=== PATIENT | female | born 1930 | race Caucasian/White ===

== ENCOUNTER 2016-04-05 00:15 | Inpatient (IN) | payer OTHER ==
[~2016-04-05] VITALS: Ht 167.6 cm; Wt 68.0 kg
--- NOTE | 2016-04-05 00:16 | NUR ---
PT BIBA TO BED 4 AT THIS TIME.
[2016-04-05] MEDS ORDERED: IPRATROPIUM 0.02% 0.5 MG/2.5 ML NEBU INH ONE (00:35)
[2016-04-05] MEDS ORDERED: ALBUTEROL 0.083% 2.5 MG/3 ML NEBU INH ONE (00:35)
--- NOTE | 2016-04-05 00:42 | NUR ---
PATIENT PAT FROM [facility] PRESENTS TO ED WITH SOB . PT STATES SHE IS HAVING DIFFICULTY EXHALING. PT HAS HX OF CHF, DMII, END-STAGE RENAL DISEASE AND ASTHMA . DENIES N/V/D; SKIN IS PINK/WARM/DRY; AAOX4 WITH EVEN AND STEADY GAIT; LUNG SOUNDS DIMINISHED IN BL BASES WITH SLIGHT WHEEZING ON EXHALATION; HR EVEN AND REGULAR; PT DENIES ANY FEVER, CP, OR COUGH AT THIS TIME; PATIENT STATES PAIN OF 0/10 AT THIS TIME; VSS; PATIENT POSITIONED FOR COMFORT; HOB ELEVATED; BEDRAILS UP X2; BED DOWN. ER MD MADE AWARE OF PT STATUS.
[2016-04-05] MEDS ORDERED: FUROSEMIDE 40 MG/4 ML VIAL IVP ONE (00:55)
[2016-04-05 01:01] VITALS: BP 131/47
[2016-04-05] MEDS ORDERED: ONDANSETRON 4 MG/2 ML VIAL IVP PRN (02:35)
[2016-04-05] MEDS ORDERED: NACL 0.9% 1,000 ML IV SCH (02:35)
[2016-04-05] MEDS ORDERED: MORPHINE SULFATE 2 MG/ML SYR IVP PRN (02:35)
[2016-04-05] MEDS ORDERED: ACETAMINOPHEN 325 MG TAB PO PRN (02:35)
[2016-04-05] MEDS ORDERED: ALBUTEROL SULFATE/IPRATROPIU 3 ML SOL IH PRN ×2 (02:35→10:30)
--- NOTE | 2016-04-05 02:36 | NUR ---
Patient appears to be resting comfortably in bed. Vital Signs within normal limits. Respirations even and unlabored. SISTER AT BEDSIDE
--- NOTE | 2016-04-05 03:34 | NUR ---
Patient will be admitted to care of DR. MARIN. Admited to TELE. Will go to room 110A. Belongings list completed. Report to MELA BARFIELD.
[2016-04-05] MEDS ORDERED: MONTELUKAST SODI5 MG PO (03:48)
[2016-04-05] MEDS ORDERED: HYDRALAZINE HCL PO (03:48)
[2016-04-05] MEDS ORDERED: POLYETHYLENE GL (03:48)
[2016-04-05] MEDS ORDERED: HALOPERIDOL1 M1 PO (03:48)
[2016-04-05] MEDS ORDERED: SENSIPAR30 MG PO (03:48)
[2016-04-05] MEDS ORDERED: XANAX0.5 MG PO (03:48)
[2016-04-05] MEDS ORDERED: MIRALAX17 GM PO (03:48)
[2016-04-05] MEDS ORDERED: ADVAIR DISKUS 21 DSK IH (03:48)
[2016-04-05] MEDS ORDERED: LEVOTHYROXIN0.025 M1 PO (03:48)
[2016-04-05] MEDS ORDERED: NEPHRO-VITE VIT1 TAB PO (03:48)
[2016-04-05] MEDS ORDERED: NORCO 10-325 T1 EACH PO (03:48)
[2016-04-05] MEDS ORDERED: OXYBUTYNIN CHLOR5 M2 PO (03:48)
[2016-04-05] MEDS ORDERED: CYCLOBENZAPRINE10 M3 PO (03:48)
[2016-04-05] MEDS ORDERED: RESTORIL15 MG PO (03:48)
[2016-04-05] MEDS ORDERED: PANTOPRAZOLE SO40 M1 IV (03:48)
[2016-04-05] MEDS ORDERED: TAMSULOSIN HCL0.4 MG PO (03:48)
[2016-04-05] MEDS ORDERED: GABAPENTIN100 M1 PO (03:48)
[2016-04-05] MEDS ORDERED: CARVEDILOL3.125 MG PO (03:48)
[2016-04-05] MEDS ORDERED: STOOL SOFTENER1 TAB PO (03:48)
[2016-04-05] MEDS ORDERED: NITROGLYCERIN TD (03:48)
[2016-04-05] MEDS ORDERED: RENVELA800 MG PO (03:48)
[2016-04-05] MEDS ORDERED: ASPIR-LOW81 MG PO (03:48)
[2016-04-05] MEDS ORDERED: PRIMIDONE50 M1 PO (03:48)
[2016-04-05 03:50] VITALS: BP 129/65
--- NOTE | 2016-04-05 03:50 | NUR ---
Admitted from ER TO TELEMETRY UNIT, with chief complaint of SHORTNESS OF BREATH, 85 y/o ,Female, AWAKE, A/OX3. WITH WHEEZES ON BILATERAL LUNG AUSCULTATION. DROWSY, REQUESTED TO LET HER SLEEP. IV SALINE LOCK AT THE LEFT FOREARM G24, PATENT. HEAD TO TOE ASSESSMENT DONE WITH CHARGE NURSE MERI, PATIENT WITH BLANCHABLE REDNESS AT SACRAL AREA. PITTING EDEMA 2+ AT BILATERAL LOWER EXTREMITIES. ELEVATED ON TWO PILLOWS. F/C PATENT DRAINING CLEAR YELLOW URINE. DENIES PAIN 0/10. oriented to call light, bed, phone,television, bathroom, smoking policy, visiting hours, procedures, ID bracelet on. Belongings list checked.
[2016-04-05] MEDS: ALBUTEROL SULFATE/IPRATROPIU 3 ML SOL IH SCH ×3 (03:54→11:00)
--- NOTE | 2016-04-05 03:59 | NUR ---
Pt report given to MELA BARFIELD. Transfer of care at this time.
--- NOTE | 2016-04-05 05:00 | NUR ---
Patient's Plan of Care was discussed and reviewed with OVERWEAVER: CAROLYNE ORTIZ LVN.
--- NOTE | 2016-04-05 06:26 | NUR ---
PT REFUSED BREATHING TX AND IS STATED SHE WANTED TO SLEEP NO SIGNS OF DISTRESS NOTED AT THIS TIME AND WILL ENDORSE TO DAY SHIFT RN
--- NOTE | 2016-04-05 06:30 | NUR ---
STILL SLEEPING COMFORTABLY. CONDITION REMAIN STABLE. WILL ENDORSE TO AM NURSE FOR CONTINUITY OF CARE.
--- NOTE | 2016-04-05 07:25 | NUR ---
ENDORSED TO MELA MCWILLIAMS FOR CONTINUITY OF CARE.
--- NOTE | 2016-04-05 07:30 | NUR ---
RECEIVED PT FROM CAROLYNE DONOAVN. PT DOES NOT WANT TO BE BOTHERED AT THIS TIME
[2016-04-05] MEDS ORDERED: HYDROcodone/APAP 10/325 MG 1 TAB TAB PO PRN (08:15)
--- NOTE | 2016-04-05 08:35 | NUR ---
PATIENT HAS BEEN SCREENED AND CATEGORIZED MODERATE NUTRITION RISK. PATIENT WILL BE SEEN WITHIN 3-5 DAYS OF ADMISSION. 04/07/16-04/09/[address]
[2016-04-05] MEDS ORDERED: ALPRAZolam 0.5 MG TAB PO SCH ×2 (09:00→09:08)
[2016-04-05] MEDS ORDERED: CINACALCET 30 MG TAB PO SCH ×2 (09:00→09:09)
[2016-04-05] MEDS ORDERED: CARVEDILOL 3.125 MG TAB PO SCH ×2 (09:00→09:07)
[2016-04-05] MEDS: METOPROLOL SUCCINATE 50 MG TABER PO SCH (09:00)
[2016-04-05] MEDS ORDERED: DEXTROSE 50% 50 ML SYR IVP PRN (09:00)
[2016-04-05] MEDS ORDERED: ECOTRIN 81 MG TABEC PO SCH ×2 (09:00→09:06)
--- NOTE | 2016-04-05 09:00 | NUR ---
HELD BETA BLOCKERS MEDS AND HALOPERIDOL PT HR IS RANGING BETWEEN 56-59 THIS AM. WILL CONT TO MONITOR PT CONDITION
[2016-04-05] MEDS ORDERED: CYCLOBENZAPRINE 10 MG TAB PO SCH (09:11)
[2016-04-05] MEDS ORDERED: DOCUSATE SOD/SENNA 50/8.6 MG 1 TAB PO SCH (09:12)
[2016-04-05] MEDS ORDERED: HALOPERIDOL 1 MG TAB PO SCH (09:15)
[2016-04-05] MEDS ORDERED: hydrALAZINE 10 MG TAB PO SCH (09:15)
[2016-04-05] MEDS ORDERED: VIT-B COMP/VIT-C/FOLIC ACID 1 TAB PO SCH (09:20)
[2016-04-05] MEDS ORDERED: SEVELAMER 800 MG TAB PO SCH (09:21)
[2016-04-05] MEDS ORDERED: POLYETHYLENE GLYCOL 17 GM/PKT PO SCH (09:22)
[2016-04-05] MEDS ORDERED: OXYBUTYNIN 5 MG TAB PO SCH ×2 (09:23→21:00)
[2016-04-05] MEDS ORDERED: NITROGLYCERIN 0.2 MG/HR PATCH TD SCH (09:24)
[2016-04-05] MEDS ORDERED: PRIMIDONE 50 MG TAB PO SCH (09:39)
[2016-04-05] MEDS ORDERED: GABAPENTIN 300 MG CAP PO SCH (09:43)
[2016-04-05] MEDS: FUROSEMIDE 40 MG/4 ML VIAL IVP SCH (09:58)
[2016-04-05] MEDS: POLYETHYLENE GLYCOL 17 GM/PKT PO SCH (09:58)
--- NOTE | 2016-04-05 10:00 | NUR ---
PT EVAL PERFORMED EARLIER
[2016-04-05] MEDS: CINACALCET 30 MG TAB PO SCH (10:13)
[2016-04-05 10:56] VITALS: BP 156/71
--- NOTE | 2016-04-05 11:18 | NUR ---
VERIFIED WITH DR MONZON. LEVOTHYROXINE TO BE GIVEN 1/2 TAB, GIVE ADVAIR AND GIVE ALBUTEROL. CALLED PHARMACY TO VERIFY MEDS
--- NOTE | 2016-04-05 11:19 | NUR ---
PT IS CURRENLTY WITH 2D ECHO. MORE COOPERATIVE AND ACCEPTS BREATHING TREATMENTS, PERFORMS INCENTIVE SPIROMETRY
--- NOTE | 2016-04-05 11:21 | NUR ---
EPISODE OF RYAN AT 48 . PT ISWITH PROCEDURE: 2D ECHO AT THIS TIME PT IS EASY AROUSABLE NO DISTRESS AT THIS TIME STATED " I AM LISTENING TO THE MUSICE ' HR WENT BACK UP TO 58
[2016-04-05] MEDS ORDERED: FLUTICASONE NASAL 50 MCG/ACTUATION 16 GM BTL NS SCH (11:22)
[2016-04-05] MEDS: BLOOD GLUCOSE MONITORING 1 DEV DEV FS SCH ×3 (11:38→20:56)
[2016-04-05] MEDS: SEVELAMER 800 MG TAB PO SCH ×2 (12:30→17:00)
[2016-04-05] MEDS: CYCLOBENZAPRINE 10 MG TAB PO SCH ×2 (12:31→17:00)
[2016-04-05] MEDS: HALOPERIDOL 1 MG TAB PO SCH ×2 (12:36→17:00)
[2016-04-05] MEDS: ALPRAZolam 0.5 MG TAB PO SCH ×3 (12:37→20:41)
--- NOTE | 2016-04-05 12:37 | NUR ---
FED THE PATIENT.ABLE TO TOLERATE 75% OF THE MEAL. MEDS GIVEN ORDERD PER SCHEDULE. DR MONZON NOTIFIED RE: LOW HR LEVEL OF THE PATIENT. NO PAIN REPORTED AT THIS TIME
--- NOTE | 2016-04-05 15:58 | NUR ---
NOTIFIED DIALYSIS NURSE RE: PT LOW HEART RATE RANGING 46-48 PT IS CURRENTLY AWAKE AND AROUSABLE. NO REPORT OF ANY DISTRESS AT THIS TIME
[2016-04-05 16:00] VITALS: BP 118/77
--- NOTE | 2016-04-05 16:09 | NUR ---
REPORTED ABG RESULTS TO DR JINA CAMPA FIO2 TO 2 L N/C Addendum: 04/05/16 at 1804 by Viviana Bcuk RT CORRECT MD WAS DR MONZON
--- NOTE | 2016-04-05 16:19 | NUR ---
SPOKE TO RT RE: ELEVATED CO2. RT STATED MD HAS BEEN NOTIFIED. WILL REDUCE O2 LEVEL OF THE PATIENT.
[2016-04-05] MEDS: INSULIN ASPART SLIDING SCALE 100 UNITS/ML VIAL SUBQ PRN ×2 (16:58→20:57)
[2016-04-05] MEDS: CARVEDILOL 3.125 MG TAB PO SCH (17:00)
[2016-04-05] MEDS: PIPER/TAZO 2.25GM/D5W PREMIX 50 ML IV SCH (17:00)
--- NOTE | 2016-04-05 17:00 | NUR ---
US " There is biphasic waveform in both common femoral arteries with an increased velocity in the right common femoral artery. This suggests inflow disease above the level of the common femoral arteries. There also appears to be significant flow limitation at the level of the distal popliteal arteries bilaterally." NOTED RESULTS, SHOWED RESULT TO DR NELSON. WILSON TO REVIEW AT THIS TIME
--- NOTE | 2016-04-05 17:14 | NUR ---
SPOKE TO PHARMACISIT RE: PT CURRENTL MEDICATION FOR ZOSYN. PT IS CURRENTLY WITH DIALYSIS PHARMACIST TO RESCHEDULE IV ATB AFTER DIALYSIS HELD OTHER MEDS AT THIS TIME DURING DIALYIS. NOTIFIED DR MONZON
--- NOTE | 2016-04-05 17:21 | NUR ---
ADMINISTERED INSULIN 3 UNI TS ON L LOWER QUAD. VS REMAIN STABLE WITH DIALYSIS HR RANGES FROM 45-50 PT IS AROUSABLE AND PLEASANT. SIDE RAILS UP CALL LIGHT WITHIN REACH
[2016-04-05] MEDS: TAMSULOSIN 0.4 MG CAP PO SCH (17:30)
--- NOTE | 2016-04-05 17:42 | NUR ---
CALLED DAUGHTER PER FAMILY REQUEST
--- NOTE | 2016-04-05 18:22 | NUR ---
DAUGHTER WILL VISIT THE PATIENT TONIGHT. ASKED DIALYSIS NURSE IF PT CAN EAT. REQUESTED TO FEED THE PATIENT AFTER HD AROUND 7PM
--- NOTE | 2016-04-05 18:41 | NUR ---
PT STILL WITH DIALYSIS , CURRENT BP AT 146/56 HR 46 PT IS AWAKE AND AROUSABLE,NO REPORT OF RESPIRATORY DISTRESS
--- NOTE | 2016-04-05 18:42 | NUR ---
02 LEVEL NOW DOWN TO 2LPM VIA NC
[2016-04-05] MEDS ORDERED: PIPER/TAZO 2.25GM/D5W PREMIX 50 ML IV SCH (19:30)
--- NOTE | 2016-04-05 19:30 | NUR ---
RECEIVED REPORT FROM MELA MCWILLIAMS, AT BEDSIDE. INITIAL ASSESSMENT AND BODY CHECK DONE. PATIENT AAO X 3-4 WITH EPISODE OF FORGETFUL, LEGALLY BLIND, ABLE TO FOLLOW COMMAND AND MAKE NEEDS KNOWN AND ON BEDREST. PATIENT CURRENTLY LYING DOWN ON THE BED AND TALKING TO HER DAUGHTER. NO S/S OF DISTRESS OR SOB NOTED. DENIED OF ANY PAIN/DISCOMFORT AT THIS TIME. SKIN WARM/DRY TO TOUCH WITH NORMAL COLOR AND NOTED BLE EDEMA WITH SOME DISCOLORATION AND BLANCHABLE REDNESS TO SACRAL AREAS. RT UPPER ARM AV SHUNT HAS GOOD BRUIT/THRILL. DISCUSSED PLAN OF CARE, PAIN MANAGEMENT AND MEDICATION REGIMEN WITH PATIENT/DAUGHTER AND BOTH VERBALIZED UNDERSTANDING. PLACED PATIENT ON SAFETY/FALL/PRESSURE ULCER PRECAUTIONS AND WILL CONTINUE TO MONITOR. CALL LIGHT LEFT WITHIN REACH.
--- NOTE | 2016-04-05 19:33 | NUR ---
PT FINISHED HD VS STABLE. HR REMAIN TO BE AT ABOVE 50'S. 3000ML FLUID OUT. PT IS AWAKE AND ORIENTED. LEFT SIGNAGE FOR FLUID RESTRICTION 1600 ML BY THE BEDSIDE, SIGN FOR LEGALLY BLIND IN PLACE. ENDORSED TO NURSE LARES
[2016-04-05 20:00] VITALS: BP 137/53
[2016-04-05] MEDS: methylPREDNISolone SS 40 MG/ML VIAL IVP SCH (20:37)
[2016-04-05] MEDS: DOCUSATE SOD/SENNA 50/8.6 MG 1 TAB PO SCH (20:37)
[2016-04-05] MEDS: MONTELUKAST SODIUM 10 MG TAB PO SCH (20:38)
[2016-04-05] MEDS: hydrALAZINE 10 MG TAB PO SCH (20:38)
[2016-04-05] MEDS: TEMAZEPAM 15 MG CAP PO SCH (20:38)
[2016-04-05] MEDS: PRIMIDONE 50 MG TAB PO SCH (20:39)
--- NOTE | 2016-04-05 21:30 | NUR ---
ADMINISTERED DUE MEDICATIONS MD'S ORDERED WITH EDUCATION GIVEN. PATIENT COMPLYING WITH MEDICATIONS AND TOLERATED WELL. CONSUMED 50 % OF DINNER. KEPT PATIENT IN COMFORTABLE POSITION/WARM AND WILL CONTINUE TO MONITOR.
--- NOTE | 2016-04-05 22:00 | NUR ---
[employer] ASSISTED PATIENT TO USE THE BED ALBERTO WITH PATRICE-CARE GIVEN. REPOSITION FOR COMFORT/PRESSURE RELIEF AND PATIENT TOLERATED WELL. WILL CONTINUE TO MONITOR.
[2016-04-06] VITALS: BP 136/65
[2016-04-06] MEDS: PIPER/TAZO 2.25GM/D5W PREMIX 50 ML IV SCH ×3 (00:41→16:08)
--- NOTE | 2016-04-06 01:00 | NUR ---
PATIENT RESTED COMFORTABLY IN BED WITH EVEN AND UNLABORED RESPIRATORY. V/S REMAINED WNL AND AFEBRILE. NO ANY POTENTIAL COMPLICATION NOTED. WILL CONTINUE MONITOR.
[2016-04-06 04:00] VITALS: BP 135/61
[2016-04-06] MEDS: methylPREDNISolone SS 40 MG/ML VIAL IVP SCH ×3 (04:21→20:44)
--- NOTE | 2016-04-06 04:23 | NUR ---
PATIENT IS CLINICALLY STABLE WITH UNCHANGED V/S. AM CARE GIVEN WITH LINENS/GOWN CHANGED AND PATIENT TOLERATED WELL. WILL CONTINUE TO MONITOR.
--- NOTE | 2016-04-06 05:22 | NUR ---
ADDITIONAL: ALSO NOTED HEART MURMUR SOUNDS ON AUSCULTATION.
[2016-04-06] MEDS: LEVOTHYROXINE 0.025 MG TAB PO SCH (05:33)
[2016-04-06] MEDS: BLOOD GLUCOSE MONITORING 1 DEV DEV FS SCH ×4 (05:42→20:45)
[2016-04-06] MEDS: INSULIN ASPART SLIDING SCALE 100 UNITS/ML VIAL SUBQ PRN ×3 (05:44→20:48)
--- NOTE | 2016-04-06 07:20 | NUR ---
RECEIVED REPORT FROM MELA LARES. PT IS AAOX4. PT ON 2L NC, O2 SAT AT 100%. IV TO LEFT FA #24, PATENT AND INTACT. NO N/V OR PAIN INDICATED. ALL SAFETY PRECAUTIONS IN PLACE, SIDE RAILSX2, BED IN LOW POSITION, AND CALL LIGHT WITHIN REACH. WILL CONTINUE TO MONITOR, AND PERFORM FREQUENT ROUNDS.
--- NOTE | 2016-04-06 07:25 | NUR ---
ENDORSED PLAN OF TO ALLYSON Veras RN, AT BEDSIDE. PATIENT RESTED WELL THROUGHOUT THE SHIFT AND REMAINED IN STABLE CONDITION WITHOUT APPARENT DISTRESS NOTED.
[2016-04-06 08:00] VITALS: BP 159/78
[2016-04-06] MEDS ORDERED: BISACODYL 10 MG SUPP RC SCH (09:00)
[2016-04-06] MEDS ORDERED: SODIUM PHOSPHATE 118 ML ENEM RC SCH (09:00)
[2016-04-06] MEDS: FLUTICASONE NASAL 50 MCG/ACTUATION 16 GM BTL NS SCH (09:19)
[2016-04-06] MEDS: BRIMONIDINE TARTRATE 0.2% OP 5 ML BTL OP SCH (09:20)
[2016-04-06] MEDS: CARVEDILOL 3.125 MG TAB PO SCH ×2 (09:22→16:08)
[2016-04-06] MEDS: VIT-B COMP/VIT-C/FOLIC ACID 1 TAB PO SCH (09:23)
[2016-04-06] MEDS: hydrALAZINE 10 MG TAB PO SCH ×2 (09:23→20:46)
[2016-04-06] MEDS: ECOTRIN 81 MG TABEC PO SCH (09:24)
[2016-04-06] MEDS: PRIMIDONE 50 MG TAB PO SCH ×2 (09:24→20:45)
[2016-04-06] MEDS: GABAPENTIN 300 MG CAP PO SCH (09:25)
[2016-04-06] MEDS: SEVELAMER 800 MG TAB PO SCH ×3 (09:26→16:10)
[2016-04-06] MEDS: HALOPERIDOL 1 MG TAB PO SCH ×3 (09:26→16:09)
[2016-04-06] MEDS: CYCLOBENZAPRINE 10 MG TAB PO SCH ×3 (09:27→16:08)
[2016-04-06] MEDS: DOCUSATE SOD/SENNA 50/8.6 MG 1 TAB PO SCH ×2 (09:27→20:45)
[2016-04-06] MEDS: NITROGLYCERIN 0.2 MG/HR PATCH TD SCH (09:29)
[2016-04-06] MEDS: METOPROLOL SUCCINATE 50 MG TABER PO SCH (09:32)
[2016-04-06] MEDS: FUROSEMIDE 40 MG/4 ML VIAL IVP SCH (09:32)
[2016-04-06] MEDS: ALPRAZolam 0.5 MG TAB PO SCH ×3 (09:33→16:10)
--- NOTE | 2016-04-06 09:35 | NUR ---
PER DR ELMORE PT TO HAVE DIALYSIS TODAY. WILL FOLLOW UP ON ORDERS.
--- NOTE | 2016-04-06 09:50 | NUR ---
PT TOLERATED MEDS WELL. BP 193/120, HR 188. HELD ENEMA WILL ADMINISTER IF SUPPOSITORY INEFFECTIVE.
--- NOTE | 2016-04-06 10:00 | NUR ---
PT HAD LARGE BOWEL MOVEMENT, PT CLEANED AND REPOSITIONED.
[2016-04-06] MEDS: ALBUTEROL SULFATE/IPRATROPIU 3 ML SOL IH PRN ×2 (10:26→14:49)
--- NOTE | 2016-04-06 11:10 | NUR ---
BLOOD GLUCOSE AT 216, WILL ADMINISTER INSULIN ORDERED. HELD PO MED PT CURRENTLY ON DIALYSIS.
[2016-04-06 12:00] VITALS: BP 131/59
--- NOTE | 2016-04-06 12:20 | NUR ---
BLOOD GLUCOSE 216, ADMINISTERED 6 UNITS OF INSULIN ORDERED.
[2016-04-06] MEDS ORDERED: ALBUTEROL SULFATE/IPRATROPIU 3 ML SOL IH PRN (14:50)
--- NOTE | 2016-04-06 15:00 | NUR ---
HEMODIALYSIS COMPLETED TOTAL OUTPUT 3.6L.
--- NOTE | 2016-04-06 15:31 | NUR ---
PT FAMILY AT BEDSIDE, NO DISTRESS NOTED AT THIS TIME.
[2016-04-06 16:00] VITALS: BP 137/77
--- NOTE | 2016-04-06 16:27 | NUR ---
PT C/O 10/12. ADMINISTERED MORPHINE ORDERED. PT TOLERATED MEDS WELL. HR 59, HELD COREG AND HALDOL. PT IS NOT ANXIOUS AT THIS TIME. WILL CONTINUE TO MONITOR.
[2016-04-06] MEDS: TAMSULOSIN 0.4 MG CAP PO SCH (16:34)
--- NOTE | 2016-04-06 16:41 | NUR ---
PT TOLERATED MEDS WELL. WILL CONTINUE TO MONITOR.
--- NOTE | 2016-04-06 18:35 | NUR ---
PT FAMILY AT BEDSIDE, WILL CONTINUE TO MONITOR.
[2016-04-06] MEDS: BUDESONIDE 0.25 MG/2 ML NEBU INH SCH (19:29)
[2016-04-06] MEDS: ALBUTEROL SULFATE/IPRATROPIU 3 ML SOL IH SCH (19:29)
--- NOTE | 2016-04-06 19:33 | NUR ---
ENDORSED CARE TO MELA FOSTER. PT IN STABLE CONDITION.
--- NOTE | 2016-04-06 19:34 | NUR ---
RECEIVED PT IN STABLE CONDITION FROM MELA VALADEZ. NO SOB, NO SIGNS OF DISTRESS. VS STABLE ON 2L O2 NC. IV TO LT FA 24G PATENT, ASYMPTOMATIC, INTACT, SALINE LOCKED. DAUGHTER AT BEDSIDE. PT IS AOX4, GENERALIZED WEAKNESS, AMBULATES WITH ASSIST. PT IS LEGALLY BLIND. REDNESS TO SACRUM, DISCOLORATION TO BLE. PT WITH AV SHUNT TO RT UPPER ARM, PT HAD HD TODAY WITH 3.7 LITERS OUT. PT OLIGURIC, INCONTINENT AT TIMES. PT DENIES PAIN AT THIS TIME. PLAN OF CARE DISCUSSED WITH PT AND DAUGHTER. SAFETY MEASURES IN PLACE. CALL LIGHT WITHIN REACH. WILL CONTINUE TO MONITOR.
[2016-04-06 20:00] VITALS: BP 100/48
[2016-04-06] MEDS: TEMAZEPAM 15 MG CAP PO SCH (20:45)
[2016-04-06] MEDS: MONTELUKAST SODIUM 10 MG TAB PO SCH (20:45)
--- NOTE | 2016-04-06 20:48 | NUR ---
PT TOLERATED DUE MEDS WELL. HELD APRESOLINE DUE TO DECREASED BP. PT ON 2L O2 NC. NO SOB, NO SIGNS OF DISTRESS. IV SITE ASYMPTOMATIC, INTACT, PATENT, SALINE LOCKED. PT DENIES PAIN AT THIS TIME. PLAN OF CARE DISCUSSED WITH PT. SAFETY MEASURES IN PLACE. CALL LIGHT WITHIN REACH. WILL CONTINUE TO MONITOR.
[2016-04-07] VITALS: BP 128/53
[2016-04-07] MEDS: PIPER/TAZO 2.25GM/D5W PREMIX 50 ML IV SCH ×3 (00:09→16:49)
--- NOTE | 2016-04-07 00:15 | NUR ---
VS SATBLE, PT ON 2L O2 NC. NO SOB, NO SIGNS OF DISTRESS. IV SITE ASYMPTOMATIC, INTACT, SALINE LOCKED. PT DENIES PAIN AT THIS TIME. PLAN OF CARE DISCUSSED WITH PT. SAFETY MEASURES IN PLACE. CALL LIGHT WITHIN REACH. WILL CONTINUE TO MONITOR.
--- NOTE | 2016-04-07 02:04 | NUR ---
PT ASLEEP IN BED. PT ON 2L O2 NC. NO SOB, NO SIGNS OF DISTRESS. IV SITE ASYMPTOMATIC, INTACT, SALINE LOCKED. SAFETY MEASURES IN PLACE. CALL LIGHT WITHIN REACH. WILL CONTINUE TO MONITOR.
[2016-04-07 04:00] VITALS: BP 122/52
--- NOTE | 2016-04-07 04:05 | NUR ---
VS STABLE, PT ON 2L O2 NC. NO SOB, NO SIGNS OF DISTRESS. IV SITE ASYMPTOMATIC, INTACT, SALINE LOCKED. PT DENIES PAIN AT THIS TIME. PLAN OF CARE DISCUSSED WITH PT. SAFETY MEASURES IN PLACE. CALL LIGHT WITHIN REACH. WILL CONTINUE TO MONITOR.
[2016-04-07] MEDS: methylPREDNISolone SS 40 MG/ML VIAL IVP SCH ×3 (04:39→20:40)
--- NOTE | 2016-04-07 05:36 | NUR ---
PT REQUESTED BREATHING TREATMENT, PAGED RT. RT OLIVIER STATED HE WILL BE COMING SHORTLY. PT WITH SCANT BLOOD COMING FROM NOSE. WILL ASK RT FOR HUMIDIFIED OXYGEN.
[2016-04-07] MEDS: ALBUTEROL SULFATE/IPRATROPIU 3 ML SOL IH SCH ×4 (05:41→19:34)
[2016-04-07] MEDS: INSULIN ASPART SLIDING SCALE 100 UNITS/ML VIAL SUBQ PRN ×4 (06:34→20:46)
[2016-04-07] MEDS: BLOOD GLUCOSE MONITORING 1 DEV DEV FS SCH ×4 (06:34→20:40)
[2016-04-07] MEDS: LEVOTHYROXINE 0.025 MG TAB PO SCH (06:34)
--- NOTE | 2016-04-07 07:05 | NUR ---
ENDORSED PT IN STABLE CONDITION TO ALLYSON Thompson RN. ALL NEEDS HAVE BEEN MET AT THIS TIME.
--- NOTE | 2016-04-07 07:06 | NUR ---
RECEIVED REPORT FROM MELA FOSTER. PT IS AAOX4. PT ON 2L NC, O2 SAT AT 100%. IV TO LEFT FA #24, PATENT AND INTACT. RIGHT ARM AV SHUNT THRILL AND BRUIT NOTED. SACRAL REDNESS, AND BLE DISCOLORATION. NO N/V OR PAIN INDICATED. ALL SAFETY PRECAUTIONS IN PLACE, SIDE RAILSX2, BED IN LOW POSITION, AND CALL LIGHT WITHIN REACH. WILL CONTINUE TO MONITOR.
[2016-04-07] MEDS: BUDESONIDE 0.25 MG/2 ML NEBU INH SCH ×2 (07:08→19:34)
[2016-04-07 07:46] VITALS: BP 130/44
[2016-04-07] MEDS: CARVEDILOL 3.125 MG TAB PO SCH ×2 (08:36→16:53)
[2016-04-07] MEDS: ECOTRIN 81 MG TABEC PO SCH (08:36)
[2016-04-07] MEDS: hydrALAZINE 10 MG TAB PO SCH ×2 (08:37→20:40)
[2016-04-07] MEDS: METOPROLOL SUCCINATE 50 MG TABER PO SCH (08:37)
[2016-04-07] MEDS: HALOPERIDOL 1 MG TAB PO SCH ×3 (08:37→16:53)
[2016-04-07] MEDS: GABAPENTIN 300 MG CAP PO SCH (08:38)
[2016-04-07] MEDS: DOCUSATE SOD/SENNA 50/8.6 MG 1 TAB PO SCH ×2 (08:38→20:39)
[2016-04-07] MEDS: CYCLOBENZAPRINE 10 MG TAB PO SCH ×3 (08:39→16:53)
[2016-04-07] MEDS: CINACALCET 30 MG TAB PO SCH (08:39)
[2016-04-07] MEDS: ALPRAZolam 0.5 MG TAB PO SCH ×3 (08:39→16:53)
[2016-04-07] MEDS: POLYETHYLENE GLYCOL 17 GM/PKT PO SCH (08:40)
[2016-04-07] MEDS: FLUTICASONE NASAL 50 MCG/ACTUATION 16 GM BTL NS SCH (08:40)
[2016-04-07] MEDS: BRIMONIDINE TARTRATE 0.2% OP 5 ML BTL OP SCH (08:40)
[2016-04-07] MEDS: FUROSEMIDE 40 MG/4 ML VIAL IVP SCH (08:42)
[2016-04-07] MEDS: NITROGLYCERIN 0.2 MG/HR PATCH TD SCH (08:43)
[2016-04-07] MEDS: SEVELAMER 800 MG TAB PO SCH ×3 (08:56→16:53)
[2016-04-07] MEDS: VIT-B COMP/VIT-C/FOLIC ACID 1 TAB PO SCH (08:56)
[2016-04-07] MEDS: PRIMIDONE 50 MG TAB PO SCH ×2 (08:56→20:40)
--- NOTE | 2016-04-07 08:58 | NUR ---
PT TOLERATED MEDS WELL. HELD NASAL SPRAY AND BLOOD THINNER DUE TO PT HAVING NOSE BLEEDING. BP 1476, HR 96. DR MONZON MADE AWARE. WILL CONTINUE TO MONITOR.
[2016-04-07] MEDS ORDERED: ALBUTEROL SULFATE/IPRATROPIU 3 ML SOL IH SCH (10:00)
[2016-04-07 11:49] VITALS: BP 112/54
--- NOTE | 2016-04-07 11:58 | NUR ---
BLOOD GLUCOSE 270, ADMINISTERED 9 UNITS OF INSULIN ORDERED.
--- NOTE | 2016-04-07 12:15 | NUR ---
VSS. PT TOLERATED MEDS WELL. WILL CONTINUE TO MONITOR.
--- NOTE | 2016-04-07 12:55 | NUR ---
SS NOTE: PER JAMIE FROM [facility] ([phone]), PT'S NEBULIZER HAS BEEN APPROVED AND THEY WILL DELIVER IT BEDSIDE AROUND 1500 TODAY.
--- NOTE | 2016-04-07 13:47 | NUR ---
04/07/16 RD INITIAL ASSESSMENT COMPLETED PLEASE REFER TO NUTRITION ASSESSMENT UNDER CARE ACTIVITY FOR ESTIMATED NUTRITIONAL NEEDS. RD RECOMMENDATIONS: 1. CONTINUE CARDIAC AND CCHO 60G DIET TOLERATED 2. ENCOURAGE PO INTAKE DUE TO PT ONLY MEETING 25% OF KCAL NEEDS AND 35% OF PROTEIN NEEDS. 3. RD WILL F/U 3-5 DAYS; MODERATE RISK. ZENIA BECKFORD, RD
--- NOTE | 2016-04-07 15:00 | NUR ---
PT RESTING WITH NO DISTRESS NOTED.
[2016-04-07 16:00] VITALS: BP 111/58
--- NOTE | 2016-04-07 16:27 | NUR ---
SS NOTE: PER ORDER BOOKER AT [facility], PT IS CURRENTLY ON SERVICE WITH [facility] FOR PHYSICAL THERAPY. I SPOKE WITH KRISTEN FROM [facility] ([phone]) AND SHE CONFIRMED THAT PT IS ON SERVICE WITH THEM. I ALSO INFORMED HER THAT PT WILL BE DISCHARGED TODAY. SENT PT INFORMATION TO [phone]
--- NOTE | 2016-04-07 16:30 | NUR ---
PTS NEBULIZER AT BEDSIDE. PT'S DAUGHTER TO TAKE NEBULIZER HOME.
--- NOTE | 2016-04-07 16:46 | NUR ---
TALKED TO DR GARCIA, PT TO HAVE HD PRIOR TO DISCHARGE TOMORROW.
[2016-04-07] MEDS: TAMSULOSIN 0.4 MG CAP PO SCH (16:53)
--- NOTE | 2016-04-07 17:01 | NUR ---
PT TOLERATED MEDS WELL. BLOOD GLUCOSE 205, ADMINISTERED 6 UNITS OF INSULIN ORDERED. BP 122/68, HR 59. HELD COREG ORDERED. WILL CONTINUE TO MONITOR.
--- NOTE | 2016-04-07 18:39 | NUR ---
FAMILY PRESENT AT BEDSIDE.
--- NOTE | 2016-04-07 19:38 | NUR ---
ENDORSED CARE TO MELA FOSTER. PT IN STABLE CONDITION.
--- NOTE | 2016-04-07 19:39 | NUR ---
RECEIVED PT IN STABLE CONDITION FROM ALLYSON Thompson RN. NO SOB, NO SIGNS OF DISTRESS. VS STABLE ON 2L O2 NC. IV TO LT FA 24G PATENT, ASYMPTOMATIC, INTACT, SALINE LOCKED. DAUGHTER AT BEDSIDE. PT IS AOX4, GENERALIZED WEAKNESS, AMBULATES WITH ASSIST. PT IS LEGALLY BLIND. REDNESS TO SACRUM, DISCOLORATION TO BLE. PT WITH AV SHUNT TO RT UPPER ARM. PT OLIGURIC, INCONTINENT AT TIMES. PT DENIES PAIN AT THIS TIME. NEBULIZER AT BEDSIDE, DAUGHTER STATED SHE WILL TAKE IT HOME TONIGHT, DAUGHTER ASKED ABOUT RX FOR NEBULIZER TREATMENTS BEFORE PT IS DC AFTER HD SCHEDULED FOR TOMORROW, TOLD DAUGHTER WE WILL FOLLOW UP WITH MD IN AM, DAUGHTER VERBALIZED UNDERSTANDING. PLAN OF CARE DISCUSSED WITH PT AND DAUGHTER. SAFETY MEASURES IN PLACE. CALL LIGHT WITHIN REACH. WILL CONTINUE TO MONITOR.
[2016-04-07 20:00] VITALS: BP 100/39
[2016-04-07] MEDS ORDERED: MORPHINE SULFATE 2 MG/ML SYR IVP PRN ×2 (20:15→20:30)
[2016-04-07] MEDS: TEMAZEPAM 15 MG CAP PO SCH (20:39)
[2016-04-07] MEDS: MONTELUKAST SODIUM 10 MG TAB PO SCH (20:40)
[2016-04-07] MEDS: ATORVASTATIN 20 MG TAB PO SCH (20:42)
--- NOTE | 2016-04-07 21:00 | NUR ---
PT WITH ORDER FOR HEMODIALYSIS TOMORROW 04/08/16, PAGED [facility] AND TALKED TO DWAYNE, AWARE OF SCHEDULED HEMODIALYSIS TOMORROW, KRISTIN PLAZA MADE AWARE.
[2016-04-08] VITALS: BP 118/55
--- NOTE | 2016-04-08 00:15 | NUR ---
VS STABLE. PT ON 2L O2 NC. PT DENIES PAIN AT THIS TIME. NO SOB, NO SIGNS OF DISTRESS. IV SITE ASYMPTOMATIC, INTACT, PATENT, SALINE LOCKED. PLAN OF CARE DISCUSSED WITH PT. SAFETY MEASURES IN PLACE. CALL LIGHT WITHIN REACH. WILL CONTINUE TO MONITOR.
[2016-04-08] MEDS: PIPER/TAZO 2.25GM/D5W PREMIX 50 ML IV SCH ×3 (00:31→17:24)
[2016-04-08 04:00] VITALS: BP 139/58
[2016-04-08] MEDS: methylPREDNISolone SS 40 MG/ML VIAL IVP SCH ×3 (04:23→20:56)
--- NOTE | 2016-04-08 04:23 | NUR ---
VS STABLE, PT ON 2L O2 NC. PT TOLERATED DUE MED WELL. NO SOB, NO SIGNS OF DISTRESS. IV SITE ASYMPTOMATIC, INTACT, SALINE LOCKED. PT DENIES PAIN AT THIS TIME. PLAN OF CARE DISCUSSED WITH PT. SAFETY MEASURES IN PLACE. CALL LIGHT WITHIN REACH. WILL CONTINUE TO MONITOR.
[2016-04-08] MEDS: BLOOD GLUCOSE MONITORING 1 DEV DEV FS SCH ×4 (06:14→21:02)
[2016-04-08] MEDS: LEVOTHYROXINE 0.025 MG TAB PO SCH (06:14)
[2016-04-08] MEDS: INSULIN ASPART SLIDING SCALE 100 UNITS/ML VIAL SUBQ PRN ×4 (06:15→21:07)
--- NOTE | 2016-04-08 07:05 | NUR ---
ENDORSED PT IN STABLE CONDITION TO MELA JC. ALL NEEDS HAVE BEEN MET AT THIS TIME.
--- NOTE | 2016-04-08 07:06 | NUR ---
RECEIVED SBAR REPORT AT PT BEDSIDE. PT RESTING IN BED. DENIES PAIN. ON O2 2L NC. NO S/S OF RESPIRATORY DISTRESS. AAOX4. CALL LIGHT WITHIN REACH. AV SHUNT TO THO. HAS SCDS IN PLACE. IV SITE PATENT AND INTACT ON LFA. WILL CONTINUE TO MONITOR.
[2016-04-08] MEDS: ALBUTEROL SULFATE/IPRATROPIU 3 ML SOL IH SCH ×4 (07:33→19:27)
[2016-04-08] MEDS: BUDESONIDE 0.25 MG/2 ML NEBU INH SCH ×2 (07:44→19:27)
[2016-04-08 08:00] VITALS: BP 132/53
[2016-04-08] MEDS: CARVEDILOL 3.125 MG TAB PO SCH ×2 (08:00→17:00)
--- NOTE | 2016-04-08 08:10 | NUR ---
HD NURSE AT BEDSIDE. STARTING HD. PATIENT HAS NO S/S OF DISTRESS NOTED.
[2016-04-08] MEDS: DOCUSATE SOD/SENNA 50/8.6 MG 1 TAB PO SCH ×2 (08:24→20:47)
[2016-04-08] MEDS: SEVELAMER 800 MG TAB PO SCH ×3 (08:24→17:24)
[2016-04-08] MEDS: ALPRAZolam 0.5 MG TAB PO SCH ×3 (08:25→17:24)
[2016-04-08] MEDS: ECOTRIN 81 MG TABEC PO SCH (08:25)
[2016-04-08] MEDS: HALOPERIDOL 1 MG TAB PO SCH ×3 (08:25→17:28)
[2016-04-08] MEDS: PRIMIDONE 50 MG TAB PO SCH ×2 (08:25→20:46)
[2016-04-08] MEDS: VIT-B COMP/VIT-C/FOLIC ACID 1 TAB PO SCH (08:25)
[2016-04-08] MEDS: CYCLOBENZAPRINE 10 MG TAB PO SCH ×3 (08:25→17:24)
[2016-04-08] MEDS: GABAPENTIN 300 MG CAP PO SCH (08:26)
[2016-04-08] MEDS: PANTOPRAZOLE 40 MG INJ VIAL IVP SCH (08:26)
[2016-04-08] MEDS: MORPHINE TAB ER 15 MG TABER PO SCH ×2 (08:26→20:47)
[2016-04-08] MEDS: FUROSEMIDE 40 MG/4 ML VIAL IVP SCH (08:26)
[2016-04-08] MEDS: FLUTICASONE NASAL 50 MCG/ACTUATION 16 GM BTL NS SCH (08:27)
[2016-04-08] MEDS: BRIMONIDINE TARTRATE 0.2% OP 5 ML BTL OP SCH (08:27)
[2016-04-08] MEDS: POLYETHYLENE GLYCOL 17 GM/PKT PO SCH (08:27)
[2016-04-08] MEDS: CINACALCET 30 MG TAB PO SCH (08:31)
--- NOTE | 2016-04-08 08:40 | NUR ---
BP MEDS AND ABX HELD DUE TO HD. WILL CONTINUE TO MONITOR. TOLERATED AM MEDS.
[2016-04-08] MEDS: METOPROLOL SUCCINATE 50 MG TABER PO SCH (09:00)
[2016-04-08] MEDS: hydrALAZINE 10 MG TAB PO SCH ×2 (09:00→20:48)
--- NOTE | 2016-04-08 09:54 | NUR ---
PT HAVING HD AT BEDSIDE. HR DROPS TO LOW 40S WHILE SLEEPING. EASILY AWAKENS HR TO 58, NO S/S OF ACUTE DISTRESS. WILL CONTINUE TO MONITOR.
--- NOTE | 2016-04-08 11:06 | NUR ---
HD FINISHED AT BEDSIDE. 3L OUTPUT. NO S/S OF ACUTE DISTRESS. ACCESS SITE BEING MONITORED.
[2016-04-08] MEDS: NITROGLYCERIN 0.2 MG/HR PATCH TD SCH (11:15)
[2016-04-08 12:00] VITALS: BP 144/59
--- NOTE | 2016-04-08 14:00 | NUR ---
PT RESTING IN BED. FAMILY AT BEDSIDE. NO S/S OF DISTRESS NOTED. CALL LIGHT WITHIN REACH. WILL CONTINUE TO MONITOR.
[2016-04-08 16:00] VITALS: BP 112/55
--- NOTE | 2016-04-08 16:00 | NUR ---
BLADDER SCAN SHOWED >900 URINE RETENTION, STRAIGHT CATHETERIZED PATIENT ORDERED. 950ML CLEAR YELLOW URINE OUT, PT STATES RELIEVED PRESSURE. WILL CONTINUE TO MONITOR.
[2016-04-08] MEDS: TAMSULOSIN 0.4 MG CAP PO SCH (17:24)
--- NOTE | 2016-04-08 18:18 | NUR ---
ASSISTED PATIENT WITH FEEDING, NO S/S OF DISTRESS. IV SITE PATENT AND INTACT. DENIES DISCOMFORT. CALL LIGHT WITHIN REACH.
--- NOTE | 2016-04-08 19:32 | NUR ---
ENDORSED PLAN OF CARE TO DARIAN AT PT BEDSIDE. PT ASLEEP, EASILY AWAKENS. NO S/S OF ACUTE DISTRESS.
--- NOTE | 2016-04-08 19:33 | NUR ---
PT IS CURRENTLY RESTING IN BED AWAKE ALERT ORIENTED LEGALLY BLIND. WITH OXYGEN AT 2L VIA NASAL CANNULA NO SOB NOTED AT THIS TIME, IV SITE TO LT HANG INTACT.PT ASSISTED TO TURN AND REPOSITION FOR COMFORT.PT CONTINUES TO HAVE SCD'S TO BLE IN PLACE.FALL PREC AND BED ALARM ON.
[2016-04-08 20:00] VITALS: BP 99/63
--- NOTE | 2016-04-08 20:00 | NUR ---
Patient's Plan of Care was discussed and reviewed with BOX STAPLER: DARIAN.
[2016-04-08] MEDS: TEMAZEPAM 15 MG CAP PO SCH (20:47)
[2016-04-08] MEDS: MONTELUKAST SODIUM 10 MG TAB PO SCH (20:47)
[2016-04-08] MEDS: ATORVASTATIN 20 MG TAB PO SCH (20:48)
--- NOTE | 2016-04-08 20:55 | NUR ---
PT WAS ASSISTED TO TURN AND REPOSITION IN BED WITH THE HELP OF AGUEDA TRIVEDI AND SERENE. WILL CONTINUE TO MONITOR.
--- NOTE | 2016-04-08 23:24 | NUR ---
PT SLEEPING IN BED WILL CONTINUE TO MONITOR CONTINUES TO WEAR THE SCD'S TO BLE.
[2016-04-09] VITALS (7 sets, daily range): BP systolic 93–129; BP diastolic 45–60
--- NOTE | 2016-04-09 | NUR ---
PT AWAKENED FOR VITAL SIGNS AND THEN I OFFERED SOME MILK AND ANAHI CRACKERS TO THE PATIENT AND PT AGREED TO EAT HER SNACK I SAT HER UP AND SHE EAT WELL.PT REQUESTED FOR ANOTHER COLD MILK AND IT WAS GIVEN TO HER PT TOLERATES WELL.CALL LIGHT WITHIN REACH.
[2016-04-09] MEDS: HYDROcodone/APAP 5/325 MG 1 TAB TAB PO PRN (00:36)
--- NOTE | 2016-04-09 00:36 | NUR ---
PT REQUESTED FOR ANOTHER SLEEPING,I EXPLAINED TO THE PATIENT THAT SHE CANNOT HAVE ANY MORE TONIGHT BECAUSE SHE HAD ONE EARLIER.THEN PT COMPLAINED OF MODERATE BACK PAIN SO I MEDICATED THE PATIENT WITH NORCO ORDERED AND PER PATIENTS REQUEST I GAVE IT TO HER WITH SOME APPLESAUCE AND THEN SHE DRANK WATER TO MAKE SURE SHE SWALLOWED THE PILL.THEN PT WAS TUCKED IN BED.CALL LIGHT WITHIN REACH PT LISTENING TO THE TV.WILL CONTINUE TO MONITOR.
[2016-04-09] MEDS: PIPER/TAZO 2.25GM/D5W PREMIX 50 ML IV SCH ×4 (00:38→17:36)
--- NOTE | 2016-04-09 00:38 | NUR ---
ANTIBIOTIC GIVEN BY MELA CAPUTO PT IS AWARE AND AGREES.
--- NOTE | 2016-04-09 02:28 | NUR ---
PT HAS BEEN TURNED AND REPOSITIONED WITH THE ASSISTANCE OF MELA CAPUTO.PILLOWS PLACED BEHIND HER BACK,PT HASN'T VOIDED I ASKED THE PATIENT IF SHE FEELS THE NEED TO VOID PT STATES,"NO." BLADDER SCANNER USED TO CHECK FOR RETAINED URINE AND AFTER CHECKING A FEW TIMES WITH THE BLADDER SCANNER IT ONLY RECORDS 7-11ML OF URINE.WILL CONTINUE TO MONITOR PT IS A HD PATIENT.
--- NOTE | 2016-04-09 04:15 | NUR ---
PT WOKEN UP FOR VITAL SIGNS PT WOKE UP CONFUSED AND WAS REORIENTED THEN PT STATES,"I MUST HAVE BEEN DREAMING." PT WAS THEN TURNED AND REPOSITIONED WITH THE ASSISTANCE OF AGUEDA CAST. CALL LIGHT WITHIN REACH WILL CONTINUE TO MONITOR.
[2016-04-09] MEDS: methylPREDNISolone SS 40 MG/ML VIAL IVP SCH ×3 (04:55→21:11)
[2016-04-09] MEDS: LEVOTHYROXINE 0.025 MG TAB PO SCH (05:44)
--- NOTE | 2016-04-09 06:15 | NUR ---
PT STABLE SLEEPING COMFORTABLY IN BED.
[2016-04-09] MEDS: BLOOD GLUCOSE MONITORING 1 DEV DEV FS SCH ×4 (06:24→21:31)
[2016-04-09] MEDS: INSULIN ASPART SLIDING SCALE 100 UNITS/ML VIAL SUBQ PRN ×4 (06:26→21:32)
[2016-04-09] MEDS: ALBUTEROL SULFATE/IPRATROPIU 3 ML SOL IH SCH ×4 (06:40→19:37)
[2016-04-09] MEDS: BUDESONIDE 0.25 MG/2 ML NEBU INH SCH ×2 (06:49→19:37)
--- NOTE | 2016-04-09 07:26 | NUR ---
PT STABLE ENDORSED AT BEDSIDE TO MELA UNDERWOOD.
--- NOTE | 2016-04-09 07:29 | NUR ---
RECEIVED REPORT FROM NIGHT RN. PT RESTING IN BED. NO S/S OF ACUTE DISTRESS. PT DENIES PAIN. ON O2 2L NC. IV SITE PATENT AND INTACT. CALL LIGHT WITHIN REACH. WILL CONTINUE TO MONITOR.
[2016-04-09] MEDS: CARVEDILOL 3.125 MG TAB PO SCH ×2 (08:00→17:00)
[2016-04-09] MEDS: METOPROLOL SUCCINATE 50 MG TABER PO SCH (08:11)
[2016-04-09] MEDS: FUROSEMIDE 40 MG/4 ML VIAL IVP SCH (08:38)
[2016-04-09] MEDS: NITROGLYCERIN 0.2 MG/HR PATCH TD SCH (08:38)
[2016-04-09] MEDS: SEVELAMER 800 MG TAB PO SCH ×3 (08:44→17:36)
[2016-04-09] MEDS: ECOTRIN 81 MG TABEC PO SCH (08:44)
[2016-04-09] MEDS: ALPRAZolam 0.5 MG TAB PO SCH ×3 (08:44→17:00)
[2016-04-09] MEDS: VIT-B COMP/VIT-C/FOLIC ACID 1 TAB PO SCH (08:45)
[2016-04-09] MEDS: CYCLOBENZAPRINE 10 MG TAB PO SCH ×3 (08:45→17:36)
[2016-04-09] MEDS: MORPHINE TAB ER 15 MG TABER PO SCH ×2 (08:45→20:48)
[2016-04-09] MEDS: hydrALAZINE 10 MG TAB PO SCH ×2 (08:45→20:49)
[2016-04-09] MEDS: PRIMIDONE 50 MG TAB PO SCH ×2 (08:45→20:48)
[2016-04-09] MEDS: HALOPERIDOL 1 MG TAB PO SCH ×3 (08:46→17:36)
[2016-04-09] MEDS: GABAPENTIN 300 MG CAP PO SCH (08:46)
[2016-04-09] MEDS: DOCUSATE SOD/SENNA 50/8.6 MG 1 TAB PO SCH ×2 (08:46→20:48)
[2016-04-09] MEDS: PANTOPRAZOLE 40 MG INJ VIAL IVP SCH (08:46)
[2016-04-09] MEDS: CINACALCET 30 MG TAB PO SCH (08:47)
[2016-04-09] MEDS: FLUTICASONE NASAL 50 MCG/ACTUATION 16 GM BTL NS SCH (08:47)
[2016-04-09] MEDS: BRIMONIDINE TARTRATE 0.2% OP 5 ML BTL OP SCH (08:47)
[2016-04-09] MEDS: POLYETHYLENE GLYCOL 17 GM/PKT PO SCH (08:48)
--- NOTE | 2016-04-09 10:07 | NUR ---
PT RESTING IN BED. NO S/S OF ACUTE DISTRESS. PT TOLERATED AM MEDS WELL. CALL LIGHT WITHIN REACH. WILL CONTINUE TO MONITOR.
[2016-04-09] MEDS ORDERED: OXYBUTYNIN 5 MG TAB PO SCH ×2 (10:39→21:00)
--- NOTE | 2016-04-09 11:56 | NUR ---
PT RESTING IN BED. NO S/S OF ACUTE DISTRESS. PT DENIES PAIN. FAMILY AT BEDSIDE. WILL CONTINUE TO MONITOR.
[2016-04-09] MEDS ORDERED: PROBIOTIC1 EAC2 PO (12:03)
[2016-04-09] MEDS ORDERED: LEVAQUIN500 M1 PO (12:03)
[2016-04-09] MEDS ORDERED: ATORVASTATIN CA20 MG PO (12:03)
[2016-04-09] MEDS ORDERED: CLEOCIN HCL300 MG PO (12:03)
--- NOTE | 2016-04-09 14:39 | NUR ---
PT RESTING IN BED. NO S/S OF ACUTE DISTRESS. PT DENIES PAIN. CALL LIGHT WITHIN REACH. WILL CONTINUE TO MONITOR.
--- NOTE | 2016-04-09 14:58 | NUR ---
PT IS SLEEPING NO HHN GIVEN NO SIGNS OF DISTRESS NOTED AT THIS TIME
--- NOTE | 2016-04-09 16:52 | NUR ---
PT RESTING IN BED. NO S/S OF ACUTE DISTRESS. PT DENIES PAIN. CALL LIGHT WITHIN REACH. WILL CONTINUE TO MONITOR.
[2016-04-09] MEDS: TAMSULOSIN 0.4 MG CAP PO SCH (17:45)
--- NOTE | 2016-04-09 19:15 | NUR ---
ENDORSED PLAN OF CARE TO NIGHT RN. PT REMAINS IN STABLE CONDITION.
--- NOTE | 2016-04-09 19:20 | NUR ---
PT IS CURRENTLY RESTING IN BED HAS HUMIDIFIED OXYGEN AT 2LITERS VIA NASAL CANNULA,PT DENIES ANY SOB AT THIS TIME.HAS HER INCENTIVE SPIROMETER AT BEDSIDE FOR HER BREATHING EXERCISES. PT CONTINUES TO BE ON 1500ML/DAY FLD RESTRICTION.PT COMPLAINS OF FEELING THE URGENCY TO VOID AND BEING UNABLE TO VOID.PT STATES,"I FEEL VERY UNCOMFORTABLE."PT'S FAMILY STATES,"THAT'S THE REASON WHY SHE WASN'T SEND HOME BECAUSE SHE IS HAVING TROUBLE URINATING."I WILL CHECK PT'S BLADDER WITH THE BLADDER SCANNER.PATIENT CONTINUES TO HAVE SCD'S IN PLACE TO BLE FOR DVT PROPHALAXIS, AND WE WILL CONTINUE TO BE TURNED AND REPOSITIONED FOR COMFORT.
--- NOTE | 2016-04-09 19:30 | NUR ---
BLADDER SCANNER DONE 150ML OF URINE NOTED,PT STATES,"I FEEL LIKE I NEED TO URINATE AND CAN'T,PT FEELS DISCOMFORT." I CALLED MD TANIA MARTIN AND MD ROME IS TRAFFIC CONTROL FLAGGER FOR HIM WILL WAIT FOR HER CALL BACK.
--- NOTE | 2016-04-09 19:55 | NUR ---
MD ROME CALLED BACK AND I INFORMED MD THAT PT COMPLAINS OF FEELING THE URGENCY TO VOID AND SHE IS UNABLE TO URINATE AND PATIENT FEELS DISCOMFORT. WAS INFORMED THAT WHEN I CHECKED WITH THE BLADDER SCANNER IT RICE 150ML VOLUME IN HER BLADDER.I ALSO INFORMED MD THAT PT WAS STRAIGHT CATH BY MELA UNDERWOOD AM SHIFT NURSE AT 10AM AND SHE TOOK OUT ABOUT 150 WELL OF URINE ENDORSED TO ME IN REPORT.I EXPLAINED TO MD MY CONCERN FOR THE PATIENT BEING UNABLE TO VOID AND FEELING THE URGENCY AND DISCOMFORT EVEN THOUGH PATIENT IS A RENAL PATIENT, AND ALSO MY CONCERN FOR DOING IN AND OUT STRAIGHT CATHETER WHEN SHE ALREADY HAD ONE DONE. WAS INFORMED THAT PATIENT STATES,"THAT AT HOME SHE VOIDS ABOUT 2-3 TIMES AND AT HOME PT STATES AFTER VOIDING SHE FELT LIKE SHE RETAINS URINE." MD ROME SAID SHE WILL PT IN ORDERS FOR THE PATIENT WILL FOLLOW UP ON HER ORDERS.
--- NOTE | 2016-04-09 20:00 | NUR ---
Patient's Plan of Care was discussed and reviewed with PHYSICAL THERAPIST CENTER MANAGER: DARIAN DENSON
--- NOTE | 2016-04-09 20:11 | NUR ---
PATIENT IS AWARE THAT SHE HAS AN ORDER FOR LAIRD CATHETER AND I EXPLAINED THAT ITS SO WE CAN MONITOR HER INTAKE AND OUTPUT.PT AGREED TO HAVE LAIRD CATHETER INSERTED PT IS VERY CALM AND COOPERATIVE.WITH THE ASSITANCE OF AGUEDA PATEL I WAS ABLE TO INSERT LAIRD CATHETER.AT FIRST THE URINE ITS COMING DOWN THE TUBE LOOKED CLOUDY WITH FEW SEDIMENTS BUT WILL CONTINUE TO MONITOR LAIRD BAG ATTACHED TO LEG AND DRAINING TO GRAVITY.PT STATES,"I FEEL MUCH BETTER."WILL CONTINUE TO MONITOR.
[2016-04-09] MEDS: guaiFENesin 600 MG TABER PO SCH (20:47)
--- NOTE | 2016-04-09 20:47 | NUR ---
PATIENT TOOK HER ROUTINE MEDS DRANK WATER AND SWALLOWED HER PILLS WELL.PT TURNED AND REPOSITIONED BY AGUEDA PATEL.NEEDS MET.HS SNACK GIVEN TO THE PATIENT.
[2016-04-09] MEDS: MONTELUKAST SODIUM 10 MG TAB PO SCH (20:48)
[2016-04-09] MEDS: ATORVASTATIN 20 MG TAB PO SCH (20:48)
[2016-04-09] MEDS: TEMAZEPAM 15 MG CAP PO SCH (21:00)
--- NOTE | 2016-04-09 21:00 | NUR ---
PT REFUSED HER SLEEPING MEDICATION AT THIS TIME PT STATES,"I WOULD LIKE TO TAKE IT AROUND MIDNIGHT SO IF I WAKE UP AND CAN'T SLEEP LATER I CAN TAKE THE SLEEPING PILL AND I CAN GO BACK TO SLEEP AGAIN."SLEEPING PILL NOT ADMINISTERED AT THIS TIME.
--- NOTE | 2016-04-09 23:58 | NUR ---
PT SLEEPING AT THIS TIME WILL CONTINUE TO MONITOR.
[2016-04-10] VITALS: BP 115/49
[2016-04-10] MEDS: TEMAZEPAM 15 MG CAP PO SCH ×2 (00:42→20:54)
--- NOTE | 2016-04-10 00:45 | NUR ---
PT ASSISTED TO SIT IN BED AND EAT SOME ANAHI CRACKERS AND MILK AND SHE WILL HAVE HER SLEEPING AID WELL NEEDS MET WILL CONTINUE TO MONITOR.CALL LIGHT WITHIN REACH
--- NOTE | 2016-04-10 00:52 | NUR ---
PT IS CURRENTLY BEING TURNED AND REPOSITIONED BY AGUEDA PATEL.
[2016-04-10] MEDS: PIPER/TAZO 2.25GM/D5W PREMIX 50 ML IV SCH ×3 (01:00→16:16)
[2016-04-10 04:00] VITALS: BP 103/52
[2016-04-10] MEDS: methylPREDNISolone SS 40 MG/ML VIAL IVP SCH ×3 (04:27→20:53)
[2016-04-10] MEDS: BLOOD GLUCOSE MONITORING 1 DEV DEV FS SCH ×4 (06:05→20:58)
[2016-04-10] MEDS: LEVOTHYROXINE 0.025 MG TAB PO SCH (06:05)
[2016-04-10] MEDS: INSULIN ASPART SLIDING SCALE 100 UNITS/ML VIAL SUBQ PRN ×4 (06:06→21:00)
--- NOTE | 2016-04-10 06:34 | NUR ---
I GOT A CALL FOR LAB GAVE ME CRITICAL RESULTS AND MD GARCIA HAS BEEN PAGED.
--- NOTE | 2016-04-10 06:39 | NUR ---
MD GARCIA CALLED BACK AND HE WAS INFORMED OF PATIENT'S HIGH POTASSIUM 6.0 BURN 62 AND CREAT 4.6 SAID HE WANTS PATIENT TO RECEIVE DIALYSIS TODAY BECAUSE THE POTASSIUM IS HIGH.NEW ORDERS GIVEN.
--- NOTE | 2016-04-10 06:39 | NUR ---
I CALLED [facility] AND CONTACTED PERSON DWAYNE AND I INFORMED HER THAT MD GARCIA WANTS THE PATIENT TO HAVE DIALYSIS TODAY.SHE IS AWARE.
[2016-04-10] MEDS: ALBUTEROL SULFATE/IPRATROPIU 3 ML SOL IH SCH ×4 (07:10→20:45)
--- NOTE | 2016-04-10 07:11 | NUR ---
ASSUMED CONTINUITY OF CARE. NO SIGNS AND SYMPTOMS OF ACUTE DISTRESS NOTICED. INITIAL ASSESSMENT DONE. RE-ORIENTED TO EVENTS AND SURROUNDINGS. HOB ELEVATED. EXPLAINED DIAGNOSIS, PLAN OF CARE, PAIN MANAGEMENT TEACHING, USE OF CALL LIGHT/BED/TV/BATHROOM. FALL PRECAUTION APPLIED. CALL LIGHT WITHIN REACH.
[2016-04-10] MEDS: BUDESONIDE 0.25 MG/2 ML NEBU INH SCH ×2 (07:21→20:47)
--- NOTE | 2016-04-10 07:22 | NUR ---
PT CURRENTLY RECEIVING DIALYSIS REPORT ENDORSED TO BIJAL SOTELO. HE WILL RESUME CARE OF THE PATIENT.
[2016-04-10 08:00] VITALS: BP 136/64
[2016-04-10] MEDS: SEVELAMER 800 MG TAB PO SCH ×4 (08:00→16:36)
[2016-04-10] MEDS: CARVEDILOL 3.125 MG TAB PO SCH ×2 (08:00→16:36)
--- NOTE | 2016-04-10 08:00 | NUR ---
Patient's Plan of Care was discussed and reviewed with BOILER WASHER: KAITLYN SOTELO
[2016-04-10] MEDS: MORPHINE TAB ER 15 MG TABER PO SCH ×2 (09:00→20:54)
[2016-04-10] MEDS: hydrALAZINE 10 MG TAB PO SCH ×2 (09:00→20:55)
[2016-04-10] MEDS: FUROSEMIDE 40 MG/4 ML VIAL IVP SCH (09:00)
[2016-04-10] MEDS: NITROGLYCERIN 0.2 MG/HR PATCH TD SCH (09:00)
[2016-04-10] MEDS: PANTOPRAZOLE 40 MG INJ VIAL IVP SCH (09:09)
--- NOTE | 2016-04-10 09:09 | NUR ---
ADMINISTERED IV MEDS PRESCRIBED, PT LANDEN WELL. DIALYSIS IN PROCESS. NURSE AT BEDSIDE.
[2016-04-10] MEDS: FLUTICASONE NASAL 50 MCG/ACTUATION 16 GM BTL NS SCH (09:14)
[2016-04-10] MEDS: BRIMONIDINE TARTRATE 0.2% OP 5 ML BTL OP SCH (09:14)
[2016-04-10] MEDS: guaiFENesin 600 MG TABER PO SCH ×2 (09:15→20:54)
[2016-04-10] MEDS: ECOTRIN 81 MG TABEC PO SCH (09:15)
[2016-04-10] MEDS: POLYETHYLENE GLYCOL 17 GM/PKT PO SCH (09:15)
[2016-04-10] MEDS: ALPRAZolam 0.5 MG TAB PO SCH ×3 (09:15→16:36)
[2016-04-10] MEDS: PRIMIDONE 50 MG TAB PO SCH ×2 (09:15→20:54)
[2016-04-10] MEDS: VIT-B COMP/VIT-C/FOLIC ACID 1 TAB PO SCH (09:15)
[2016-04-10] MEDS: GABAPENTIN 300 MG CAP PO SCH (09:16)
[2016-04-10] MEDS: HALOPERIDOL 1 MG TAB PO SCH ×3 (09:16→16:36)
[2016-04-10] MEDS: CYCLOBENZAPRINE 10 MG TAB PO SCH ×3 (09:16→16:35)
[2016-04-10] MEDS: DOCUSATE SOD/SENNA 50/8.6 MG 1 TAB PO SCH ×2 (09:17→20:54)
[2016-04-10] MEDS: CINACALCET 30 MG TAB PO SCH (09:23)
--- NOTE | 2016-04-10 10:35 | NUR ---
HD NURSE REPORTED THAT HD WAS DONE AND OUTPUT WAS 2.5 LITER. PT. RESTING COMFORTABLY. NO DISTRESS NOTICED. INFORMED CAROLINA CHRISTENSEN.
--- NOTE | 2016-04-10 11:50 | NUR ---
DR. GARCIA CAME, INFORMED OF HD OUTPUT OF 2.5 LITER.
[2016-04-10 12:00] VITALS: BP 114/46
--- NOTE | 2016-04-10 14:34 | NUR ---
SS NOTE: I SPOKE WITH MO FROM [facility] ([phone]) AND INFORMED HER THAT PT'S ANTICIPATED D/C DATE IS TOMORROW. SHE STATED THAT SHE WILL SEND A NURSE TO SEE PT ON 04/12/15 AT [facility].
[2016-04-10 16:00] VITALS: BP 108/53
[2016-04-10] MEDS ORDERED: PROMETH/CODEINE 6.25-10MG/5ML 5 ML UDC PO PRN (16:00)
[2016-04-10] MEDS ORDERED: FUROSEMIDE 40 MG/4 ML VIAL IVP SCH (16:30)
--- NOTE | 2016-04-10 16:32 | NUR ---
HELD LASIX DUE TO LOW BP.
[2016-04-10] MEDS: TAMSULOSIN 0.4 MG CAP PO SCH (16:36)
[2016-04-10] MEDS: HYDROcodone/APAP 5/325 MG 1 TAB TAB PO PRN (18:09)
[2016-04-10] MEDS ORDERED: LACTULOSE 20 GM/30 ML UDC PO SCH (18:30)
--- NOTE | 2016-04-10 19:12 | NUR ---
BEDSIDE REPORT GIVEN TO TITA CHRISTENSEN. IN STABLE CONDITION.
--- NOTE | 2016-04-10 19:30 | NUR ---
RECEIVED REPORT FROM BIJAL SAHNI, AT BEDSIDE. INITIAL ASSESSMENT AND BODY CHECK DONE. 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 PATIENT CURRENTLY LYING DOWN ON THE BED. NO S/S OF DISTRESS OR SOB NOTED. DENIED OF ANY PAIN/DISCOMFORT AT THIS TIME. SKIN WARM/DRY TO TOUCH WITH NORMAL COLOR AND NOTED BLE EDEMA +1 WITH SOME DISCOLORATION AND BLANCHABLE REDNESS TO SACRAL AREAS. RT UPPER ARM AV SHUNT STILL HAS GOOD BRUIT/THRILL AND HEART MURMUR. DISCUSSED PLAN OF CARE, PAIN MANAGEMENT AND MEDICATION REGIMEN WITH PATIENT AND PATIENT VERBALIZED UNDERSTANDING. PLACED PATIENT ON SAFETY/FALL/PRESSURE ULCER/ASPIRATION PRECAUTIONS AND WILL CONTINUE TO MONITOR. CALL LIGHT LEFT WITHIN REACH.
[2016-04-10 19:52] VITALS: BP 93/42
[2016-04-10] MEDS: ATORVASTATIN 20 MG TAB PO SCH (20:54)
[2016-04-10] MEDS: MONTELUKAST SODIUM 10 MG TAB PO SCH (20:54)
--- NOTE | 2016-04-10 21:40 | NUR ---
ADMINISTERED DUE MEDICATIONS MD'S ORDERED WITH EDUCATION GIVEN. PATIENT COMPLYING WITH MEDICATIONS AND TOLERATED WELL. KEPT PATIENT IN COMFORTABLE POSITION/WARM AND WILL CONTINUE TO MONITOR.
[2016-04-10] MEDS ORDERED: INSULIN DETEMIR 100 UNITS/ML 10 ML VIAL SUBQ ONE (22:10)
[2016-04-10] MEDS ORDERED: NACL 0.9% 500 ML IV SCH (22:20)
[2016-04-11] VITALS: BP 97/51
[2016-04-11] MEDS: PIPER/TAZO 2.25GM/D5W PREMIX 50 ML IV SCH ×2 (00:09→08:39)
--- NOTE | 2016-04-11 00:34 | NUR ---
PATIENT ASLEEP COMFORTABLY IN BED, EASILY AROUSED AND REMAINED IN STABLE CONDITION. NO S/S OF DISTRESS NOTED. WILL CONTINUE TO MONITOR.
[2016-04-11 04:00] VITALS: BP 104/50
[2016-04-11] MEDS: methylPREDNISolone SS 40 MG/ML VIAL IVP SCH (04:11)
--- NOTE | 2016-04-11 04:30 | NUR ---
PATIENT IS CLINICALLY STABLE WITH UNCHANGED V/S. NO ANY COMPLAINT MADE. AM CARE GIVEN BY TWO CNAS AND PATIENT TOLERATED WELL. WILL CONTINUE TO MONITOR.
[2016-04-11] MEDS ORDERED: ALPRAZolam 0.5 MG TAB PO SCH (05:00)
[2016-04-11] MEDS ORDERED: CYCLOBENZAPRINE 10 MG TAB PO SCH (05:00)
[2016-04-11] MEDS ORDERED: HALOPERIDOL 1 MG TAB PO SCH (05:00)
[2016-04-11] MEDS ORDERED: SODIUM CHLORIDE 1 GM TAB PO SCH (05:00)
[2016-04-11] MEDS: BLOOD GLUCOSE MONITORING 1 DEV DEV FS SCH (06:00)
[2016-04-11] MEDS: LEVOTHYROXINE 0.025 MG TAB PO SCH (06:02)
[2016-04-11] MEDS: INSULIN ASPART SLIDING SCALE 100 UNITS/ML VIAL SUBQ PRN (06:05)
[2016-04-11] MEDS: ALBUTEROL SULFATE/IPRATROPIU 3 ML SOL IH SCH (06:20)
[2016-04-11] MEDS: BUDESONIDE 0.25 MG/2 ML NEBU INH SCH (06:28)
--- NOTE | 2016-04-11 07:09 | NUR ---
ENDORSED PLAN OF CARE TO BIJAL SAHNI. PATIENT REMAINED IN STABLE CONDITION AND NO APPARENT DISTRESS NOTED.
--- NOTE | 2016-04-11 07:09 | NUR ---
ASSUMED CONTINUITY OF CARE. NO SIGN AND SYMPTOMS OF ACUTE DISTRESS NOTED. INITIAL ASSESSMENT DONE. FAMILIARIZED WITH SURROUNDINGS. HOB ELEVATED. FALL PRECAUTION APPLIED. CALL LIGHT WITHIN REACH.
[2016-04-11 08:00] VITALS: BP 128/49
[2016-04-11] MEDS ORDERED: CALCIUM ACETATE 667 MG TAB PO SCH (08:00)
[2016-04-11] MEDS: SEVELAMER 800 MG TAB PO SCH (08:00)
[2016-04-11] MEDS: CARVEDILOL 3.125 MG TAB PO SCH (08:00)
[2016-04-11] MEDS: POLYETHYLENE GLYCOL 17 GM/PKT PO SCH (08:32)
[2016-04-11] MEDS: ECOTRIN 81 MG TABEC PO SCH (08:33)
[2016-04-11] MEDS: GABAPENTIN 300 MG CAP PO SCH (08:33)
[2016-04-11] MEDS: MORPHINE TAB ER 15 MG TABER PO SCH (08:33)
[2016-04-11] MEDS: guaiFENesin 600 MG TABER PO SCH (08:33)
[2016-04-11] MEDS: PRIMIDONE 50 MG TAB PO SCH (08:34)
[2016-04-11] MEDS: DOCUSATE SOD/SENNA 50/8.6 MG 1 TAB PO SCH (08:34)
[2016-04-11] MEDS: VIT-B COMP/VIT-C/FOLIC ACID 1 TAB PO SCH (08:35)
[2016-04-11] MEDS ORDERED: DURAGESIC100 MCG/HR TD (08:35)
[2016-04-11] MEDS: CINACALCET 30 MG TAB PO SCH (08:36)
[2016-04-11] MEDS: FLUTICASONE NASAL 50 MCG/ACTUATION 16 GM BTL NS SCH (08:36)
[2016-04-11] MEDS ORDERED: Norco PO (08:36)
[2016-04-11] MEDS: BRIMONIDINE TARTRATE 0.2% OP 5 ML BTL OP SCH (08:37)
[2016-04-11] MEDS: FUROSEMIDE 40 MG/4 ML VIAL IVP SCH ×2 (08:38→09:29)
[2016-04-11] MEDS: NITROGLYCERIN 0.2 MG/HR PATCH TD SCH (08:38)
[2016-04-11] MEDS: hydrALAZINE 10 MG TAB PO SCH (08:38)
[2016-04-11] MEDS ORDERED: XANAX0.5 MG PO (08:39)
--- NOTE | 2016-04-11 08:41 | NUR ---
PT TOLERATED IV ANTIBIOTICS WELL. WILL CONTINUE TO MONITOR.
--- NOTE | 2016-04-11 08:57 | NUR ---
TAKE OFF FROM O2 AT 2L/MIN VIA NC. PUT ON ROOM AIR. TOLERATED WELL. NO SOB, NOTED. WILL MONITOR FOR O2 SATURATION.
[2016-04-11] MEDS ORDERED: LACTULOSE 20 GM/30 ML UDC PO SCH ×2 (09:00)
[2016-04-11] MEDS ORDERED: PANTOPRAZOLE 40 MG TABEC PO SCH (09:00)
[2016-04-11] MEDS ORDERED: NOVAPLUS V0.09 MG/Ac IH (09:03)
--- NOTE | 2016-04-11 09:14 | NUR ---
O2 SATURATION ON ROOM AIR 94% TO 95%. NO SOB, NOTED. KEEP COMFORTABLE ON BED. MARY TOLBERT MADE AWARE.
--- NOTE | 2016-04-11 09:34 | NUR ---
OK PER DR MONZON TO ADMINISTER LASIX WITH BRADYCARDIA. BP 117/53, HR 55. ADMINISTERED LASIX ORDERED. PT TOLERATED WELL.
--- NOTE | 2016-04-11 10:19 | NUR ---
SS NOTE: PER ELY SMITH FROM [facility], PT JUST HAS A CONCENTRATOR THAT SHE USES PRN. SHE ALSO STATED THAT PT DOES NOT UTILIZE OXYGEN WHEN SHE GOES TO DIALYSIS VIA VAN TRANSPORTATION.
--- NOTE | 2016-04-11 10:29 | NUR ---
SS NOTE: I SPOKE WITH EZIO FROM [facility] [employer] ([phone]) AND ARRANGED GAS CONTROLLER AT 1145 THIS MORNING. SHE STATED THAT THEY ONLY PROVIDE THE WHEELCHAIR VAN, NOT THE WHEELCHAIR. I SPOKE WITH ELY FROM [facility] AND SHE STATED THAT SHE WILL HAVE SOMEONE BRING PT'S WHEELCHAIR OVER BY 1145. ASSOCIATE FINANCIAL ADVISOR TA MADE AWARE OF PT'S GAS CONTROLLER AT 1145 TODAY.
--- NOTE | 2016-04-11 10:31 | NUR ---
SS NOTE: PER CAROLYNE FROM [facility], THEY RAN PT'S ELIGIBILITY AND PT WAS GIVEN A WALKER BY [email or web address] ([phone]) IN 2014 SO PT DOES NOT QUALIFY FOR ANOTHER WALKER.
--- NOTE | 2016-04-11 10:50 | NUR ---
PT. DAUGHTER -OMERO CAME, EXPLAINED TO PT. AND PT. DAUGHTER ABOUT DIAGNOSIS, MD D/C ORDER, D/C INSTRUCTIONS AND TEACHING, MD PRESCRIPTION LIST EDUCATION, MD FOLLOW-UP, DIET, DM TEACHING. PT. AND PT. DAUGHTER -OMERO VERBALIZED UNDERSTANDING.
--- NOTE | 2016-04-11 11:15 | NUR ---
D/C VIA WHEELCHAIR WITH ASSISTANCE FROM [employer], ACCOMPANIED BY PT. DAUGHTER -OMERO. AWAKE, ALERT, AND ORIENTED X3. SPEECH CLEAR. NO C/O PAIN. NO SOB, NOTED. IN STABLE CONDITION. INFORMED CHARGE NURSE TA CHRISTENSEN.
[2016-04-11] MEDS ORDERED: INSULIN DETEMIR 100 UNITS/ML 10 ML VIAL SUBQ SCH (21:00)
[2016-04-12] MEDS ORDERED: ALBUTEROL SULFATE/IPRATROPIU 3 ML SOL IH PRN (08:00)
== END 2016-04-11 11:15 | disposition home health service (06) | DRG 177 ==
LOC: MED 00:15 → MTU 02:33
PROVIDERS: ADMIT Family Medicine; ATTEND Family Medicine
PROC: 5A1D60Z (ICD-10-PCS; principal; 2016-04-05)
DX: J69.0 Pneumonitis due to inhalation of food and vomit (principal); I50.43 Acute on chronic combined systolic (congestive) and diastolic (congestive) heart failure; N18.6 End stage renal disease; N17.0 Acute kidney failure with tubular necrosis; J96.02 Acute respiratory failure with hypercapnia; N39.0 Urinary tract infection, site not specified; I13.2 Hypertensive heart and chronic kidney disease with heart failure and with stage 5 chronic kidney disease, or end stage renal disease; J44.0 Chronic obstructive pulmonary disease with (acute) lower respiratory infection; E87.1 Hypo-osmolality and hyponatremia; E03.9 Hypothyroidism, unspecified; R33.9 Retention of urine, unspecified; N32.81 Overactive bladder; I20.9 Angina pectoris, unspecified; M54.9 Dorsalgia, unspecified; F41.1 Generalized anxiety disorder; E11.65 Type 2 diabetes mellitus with hyperglycemia; E11.22 Type 2 diabetes mellitus with diabetic chronic kidney disease; E11.51 Type 2 diabetes mellitus with diabetic peripheral angiopathy without gangrene; M19.90 Unspecified osteoarthritis, unspecified site; I48.91 Unspecified atrial fibrillation; I35.0 Nonrheumatic aortic (valve) stenosis; E87.5 Hyperkalemia; E83.39 Other disorders of phosphorus metabolism; G89.29 Other chronic pain; H40.10X0 Unspecified open-angle glaucoma, stage unspecified; F32.9 Major depressive disorder, single episode, unspecified; H54.8 Legal blindness, as defined in USA; Z53.29 Procedure and treatment not carried out because of patient's decision for other reasons; H35.30 Unspecified macular degeneration; J31.0 Chronic rhinitis; K59.00 Constipation, unspecified; Z96.652 Presence of left artificial knee joint; Z99.2 Dependence on renal dialysis; Z90.710 Acquired absence of both cervix and uterus; Z90.49 Acquired absence of other specified parts of digestive tract; Z98.49 Cataract extraction status, unspecified eye; Z88.5 Allergy status to narcotic agent; Z79.82 Long term (current) use of aspirin; Z79.899 Other long term (current) drug therapy; Z87.891 Personal history of nicotine dependence; Z85.038 Personal history of other malignant neoplasm of large intestine; Z83.3 Family history of diabetes mellitus; Z82.49 Family history of ischemic heart disease and other diseases of the circulatory system